=== PATIENT | female | born 2000 ===

== ENCOUNTER → 2021-03-29 | Outpatient (REF) | payer OTHER | LOC: M LAB REF 12:23 | PROVIDERS: ATTEND Physician Assistant | DX: J02.9 Acute pharyngitis, unspecified (principal) ==

== ENCOUNTER 2021-04-25 08:49 | Emergency (ER) | payer OTHER ==
[~2021-04-25] VITALS: Ht 165.1 cm; Wt 52.4 kg
[2021-04-25 08:50] VITALS: BP 117/70
== END 2021-04-25 11:00 | disposition left against medical advice (07) ==
LOC: M ED 08:49
DX: Z53.29 Procedure and treatment not carried out because of patient's decision for other reasons (principal)